=== PATIENT | male | born 1955 | race Hispanic/Latino ===

== ENCOUNTER 2023-07-23 10:27 | Emergency (ER) | payer OTHER, SELFPAY ==
[2023-07-23 10:33] VITALS: BP 180/96
[2023-07-23] MEDS: ADACEL 0.5 ML IM (12:08)
[2023-07-23] MEDS: KEFLEX 500 MG PO (12:09)
--- NOTE | 2023-07-23 13:45 | ED.GENMED ---
History of Present Illness
General
Chief Complaint: Skin Problem
Source: patient
Exam Limitations: none
Time Seen by Provider: 07/23/23 11:29
Nursing documentation reviewed up to this point in time: agreed with
Travel History
Have you had any contact with someone who has COVID-19?: No
Do you have any symptoms of coronavirus? Fever > 100 degrees, chills, cough, shortness of breath, sore throat, loss of taste or smell, muscle aches, or headache?: No
History of Present Illness
History of Present Illness:
68-year-old male with a past medical history of diabetes presents with his son for evaluation of redness in the right hand. Patient had a splinter in the right thenar eminence on Thursday. It was very small and was able to remove it but since then
he has had some redness in the area and he was concerned that there might be a retained piece of splinter or that he might have an infection. Brought to the emergency room for assessment. He denies any fevers or chills. Denies any other
complaints.
Review of Systems
Review of Systems
All Other Systems: ROS reviewed and negative except as documented in HPI and ROS
Skin: Reports other (Redness, pain right hand)
Phy Exam
Physical Exam
Physical Exam:
General: Well appearing and non-toxic
HEENT: protecting airway
Neck: appears supple
CV: No evidence of cyanosis
Resp: No accessory muscle use
Abd: Non-distended
Extremities: Patient has an area of erythema on right palm over the thenar eminence approximately 2 cm in circumference with a small abrasion honey crusted in the center; area is warm to touch, mildly tender but not significantly swollen, no
crepitus or fluctuance
Neuro: Alert
Psych: Normal affect
Skin: Intact
Scores
Heart Failure Risk
Heart Failure Risk Score: Not Applicable
Heart Score for Chest Pain Patients
STEMI patient?: Not applicable
Withdrawal Assessment of Alcohol
Withdrawal Assessment Completed?: Not applicable
Course
Orders/Labs/Results
Orders:
Orders
07/23/23 12:02
Cephalexin Monohydrate [Keflex] 500 mg PO NOW STA
Tetanus/Diphth/Acelpertussis [Adacel] 0.5 ml IM .ONCE ONE
Vital Signs
Initial and Last Documented VS:
Initial Vital Signs
Temp Pulse Resp BP Pulse Ox
36.6 C 75 18 180/96 98
07/23/23 10:33 07/23/23 10:33 07/23/23 10:33 07/23/23 10:33 07/23/23 10:33
Last Documented Vital Signs
Temp Pulse Resp BP Pulse Ox
36.6 C 75 18 180/96 98
07/23/23 10:33 07/23/23 10:33 07/23/23 10:33 07/23/23 10:33 07/23/23 10:33
MDM/Problems Addressed
Differential Diagnosis Includes:
Cellulitis, retained foreign body
MDM/Problems Addressed:
68-year-old male with history of diabetes presents for evaluation of redness in the palm where he had a splinter earlier this week. He believes he removed the splinter but has had some pain and redness in the area since. Hypertensive otherwise
normal vitals. Exam as above. [id number] ultrasound showed no retained foreign body. Suspect likely cellulitis. Will cover with antibiotics. Will have him follow-up in insulin clinic for reassessment and repeat blood pressure check. Spoke
about return precautions all questions answered.
Chronic conditions affecting care:
Diabetes, high risk for infections
Acute Exacerbation and/or Progression of Chronic Illness:
Acutely hypertensive�no signs or symptoms of hypertensive emergency no indication for emergent antihypertensive therapy at present
Acute Exacerbation and/or Progression of Chronic Illness: HTN
*Pulse Oximetry
Patient hypoxic: no
*Critical Care Note
Total Time (30-74mins, 75-104mins- exclusive of procedures): Not Applicable
Data Reviewed
Source: patient and family (Son)
ED Attending Note
-
Portions of this chart may have been created with voice recognition software.� Occasional wrong word or��sound alike� substitutions may have occurred due to the inherent limitations of voice recognition software.
Discharge Plan
Departure
Patient Disposition: Home (Routine Discharge)
Date of Disposition: 07/23/23
Time of Disposition: 12:02
Patient with high blood pressure during this ER visit?: Yes
Discharge Problem:
Cellulitis, Hypertension
Instructions: Cellulitis (Skin Infection), Adult (DC), BLOOD PRESSURE
Prescriptions:
New
cephalexin 500 mg capsule
500 mg PO QID 7 Days Qty: 28 0RF
Referrals:
[facility]Outside[facility] - Call in 1-3 days for appt
NONE,* [Family Provider] -
Activity Restrictions/Additional Instructions:
Thank you for visiting the Emergency Department at [facility].
1. Please schedule a follow up appointment as directed. Call first thing tomorrow morning to make an appointment.
2. If indicated, please take your medications as instructed and indicated on discharge paperwork.
3. If any of your symptoms do not improve, or persist, or become more severe within 6-12 hours, please return to the emergency department for further care.
4. Please return to the emergency department if you develop a headache, neck pain/stiffness, fever greater than 100.4F, chest pain, shortness of breath, persistent nausea, vomiting, slurred speech, difficulty walking, numbness/tingling, weakness,
signs of infection or any other symptoms that are worrisome to you.
Please call [phone] if you have any questions.
Interventions
Interventions:
*General Assessment Last Done: 07/23/23 12:16
*ED COVID-19 Vaccine History Last Done: 07/23/23 10:39
*Nursing Disposition Last Done: 07/23/23 12:16
ED-Skin Assessment Last Done: 07/23/23 12:15
Discharge Date and Time
Discharge Date/Time: 07/23/23 12:16
== END 2023-07-23 12:16 | disposition home or self-care (01) ==
LOC: EMR 10:27
PROVIDERS: EMERGENCY PHYSICIAN Emergency Medicine
DX: L03.113 Cellulitis of right upper limb (principal); E11.9 Type 2 diabetes mellitus without complications; I10 Essential (primary) hypertension; Z23 Encounter for immunization
CPT/HCPCS: 99283; 90471; 90715

== ENCOUNTER 2024-12-27 20:20 | Inpatient (IN) | payer OTHER, SELFPAY ==
[2024-12-27] VITALS (7 sets, daily range): BP systolic 101–147; BP diastolic 50–100; BMI 21.6
[2024-12-27] MEDS: TYLENOL 1000 MG PO (18:13)
[2024-12-27 18:18] LABS: INR 1.21; PT 15.6 Sec (11.4-14.6)
[2024-12-27 18:23] LABS: Urine Character Cloudy (Clear)
[2024-12-27 18:27] LABS: Hematocrit 38.7 % (39.0-52.0); Hemoglobin 13.8 g/dL (13.0-18.0); Mean Corp Hgb Conc. 35.7 g/dL (33.0-37.0); Mean Corpuscular Volume 85.6 fL (80.0-94.0); Nucleated Red Blood Cells % 0 % (-); Platelet Count 198 10^3/uL (130-400); Red Cell Dist. Width 12.5 % (11.5-14.5)
[2024-12-27 18:36] LABS: AST (SGOT) 28 U/L (17-59); Albumin 4.0 g/dl (3.5-5.0); Alkaline Phosphatase 67 U/L (38-126); Blood Urea Nitrogen 22 mg/dl (9-20); Calcium 9.1 mg/dl (8.4-10.2); Carbon Dioxide 21 mmol/L (22-30); Chloride 100 mmol/L (98-107); Estimated Creatinine Clearance 58 ml/min; Glucose 186 mg/dl (70-99); Potassium 4.3 mmol/L (3.5-5.1); Sodium 132 mmol/L (135-145); Total Protein 7.2 g/dl (6.3-8.2); eGFR > 60.00
[2024-12-27 18:41] LABS: Urine Squamous Cell 0-2 /LPF (Few)
[2024-12-27 18:42] LABS: Urine White Cell >100 /HPF (0-5)
--- NOTE | 2024-12-27 18:43 | ED.GENMED ---
History of Present Illness
General
Chief Complaint: Chest Pain
Source: patient
Exam Limitations: none
Time Seen by Provider: 12/27/24 18:42
Nursing documentation reviewed up to this point in time: agreed with
History of Present Illness
History of Present Illness:
69-year-old male with history of NIDDM, hypothyroid, afib, presents pt Trinidadian only speaking, niece at bedside interpreting. She states pt was complaining of chest pain 12 midnight, then this a.m c/o back pain, developed fever. Has had diarrhea
past 5 days. Niece states at some point he was told he had a fib and wore a monitor overnight, was on diabetic pills, but pt stopped all of his medication about a year ago because he thought it made him cough and his doctor told him to stop taking
it.
Past History
Past History
ED Past Medical History: HTN, NIDDM and Hypothyroidism
ED Past Surgical History: None
Social History
Tobacco: Non-smoker
Alcohol: None
Personal:
Living: with family
Review of Systems
Review of Systems
Allergies reviewed?: Yes
All Other Systems: ROS reviewed and negative except as documented in HPI and ROS
Constitutional: Reports fever and fatigue
EENT: Denies sore throat
Respiratory: Reports cough; Denies trouble breathing
Cardiac: Reports chest pain
ABD/GI: Reports nausea, vomiting and diarrhea; Denies abdominal pain
: Denies dysuria
Musculoskeletal: Reports back pain; Denies edema
Skin: Reports no symptoms
Neurological: Reports no symptoms
Phy Exam
Physical Exam
Physical Exam:
GENERAL: No acute distress. A&Ox3.
CONSTITUTIONAL: 103.1
EYES: clear, conjunctivae normal
ENMT: moist mucus membranes, Pharynx nl
RESPIRATORY: Regular respirations, nonlabored, lungs clear.
CARDIOVASCULAR: Regular rate and rhythm, no murmurs, no rubs.
GI: Soft, nontender, normal BS
MUSCULOSKELETAL: Moves with ease. Well perfused.
SKIN: Warm, dry, pink
PSYCH: Normal mood and affect. Well kept, interactive and appropriate
NEUROLOGIC: Awake, alert and oriented. No focal neurological deficits
Scores
Heart Score for Chest Pain Patients
STEMI patient?: Not applicable
Sepsis
Sepsis Screening
Sepsis Assessment: Sepsis
Sepsis Screen
Sepsis Screen: Sepsis
Date: 12/27/24
Time: 20:22
Course
Orders/Labs/Results
Orders:
Orders
12/27/24 17:28
Electrocardiogram (*1) Urgent
Reason for Study: Chest Pain
EKG- Treatment ONCE
12/27/24 17:51
Cardiac Monitoring- Treatment ONCE
12/27/24 17:54
CXR [CR Chest Portable - 1 View] Stat
Comment:
Reason For Exam: sob, tachy
Reason Study Needs to be Portable: Patient Unstable
12/27/24 17:57
COVID-19 Antigen Urgent
Source: Nasal Swab
Complete Blood Count/With Diff Urgent
Comprehensive Metabolic Panel Urgent
Lactic Acid Q4H
Comment: ON ICE, CANCEL 2ND ORDER IF FIRST LACTIC ACID LEVEL <2
Prothrombin Time Urgent
TSH Reflex To Free T4 Urgent
Comment: ADD ON
Troponin I Urgent
Influenza A+B Rapid Molecular Urgent
ISIDRA Source: Nasal Swab
Specimen Description:
12/27/24 17:58
Blood Culture Urgent
ISIDRA Source: Blood/Venous
Specimen Description:
12/27/24 18:13
Acetaminophen [Tylenol] 1,000 mg PO NOW STA
12/27/24 18:14
Urinalysis Reflex To Culture Urgent
Date Specimen was Collected: 12/27/24
Time Specimen was Collected: 18:10
Urine Microscopic Reflex Cult Urgent
Blood Culture Urgent
ISIDRA Source: Blood/Venous
Specimen Description:
Urine Culture Urgent
ISIDRA Source: U
Specimen Description:
Date Specimen was Collected: 12/27/24
Time Specimen was Collected: 18:10
12/27/24 18:45
0.9% Sodium Chloride 1000 ml [Nss] 1,000 ml IV BOLUS
12/27/24 18:47
Cefepime HCl [Maxipime] 2,000 mg IV NOW STA
12/27/24 19:14
Add On- LAB Urgent
Tests Added?: TSH reflex T4
12/27/24 19:24
STOOL [C difficile Antigen & Toxins] Urgent
ISIDRA Source: Feces/Stool
Specimen Description:
Stool Culture Urgent
ISIDRA Source: Feces/Stool
Specimen Description:
12/27/24 19:26
0.9% Sodium Chloride 1000 ml [Nss] 1,000 ml IV BOLUS
12/27/24 19:[address] Non Medication Order As Directed
Physician Order: please complete med rec. thanks
Above order entered?: Yes
12/27/24 19:48
Bladder Scan As Directed
Follow Bladder Retention/Intermittent Cath Algorithm?: Yes
PRN if no void in __ hours: 6
Frequency: Per Retention Algorithm
If Bladder Scan Result >: 400
then:: Straight cath
Straight Cath As Directed
Frequency: Per Retention Algorithm
Additional Instructions: straight cath as needed per acute urinary retention algorithm for 24 hrs
Additional Instructions: for bladder scan greater than 400 mL
12/27/24 19:55
CT Abd/pelvis Wo Iv Cont Routine
Comment:
Reason For Exam: abdominal pain
12/27/24 20:07
Admit/Transfer Patient As Directed
Co-Sign Provider:
Level of Care: Inpatient admission
Assign to:: Telemetry
Physician / Group: maulik
Diagnosis: urosepsis
Reason for Telemetry: Arrhythmia
Date to Stop Telemetry: 12/30/24
Time to Stop Telemetry: 11:00
Reason for Hospitalization: urosepsis
Expected length of stay greater than two midnights?: Yes
ELOS- Estimated Length of Stay in days: 3
I certify the patient meets the requirements for IP care: Yes
PRN Pain Medication Management As Directed
May give lesser potent ordered pain med per pt: Yes
preference::
Protocol:: Medication orders for pain may be administered in a
manner that supports deferring to patient preference
when the pt is:
- Requesting an ordered lesser potent pain medication.
Least to most potent pain medications are defined
as: acetaminophen < NSAID < tramadol < opioids
(morphine, oxycodone, hydromorphone).
- Requesting a lesser dose of the same medication IF
ORDERED.
- Requesting a less intrusive route of administration
if both routes are prescribed by the provider (PO <
IV).
12/27/24 20:09
Code Status As Directed
Resuscitation Status: Full Code
12/27/24 22:00
Lactic Acid Q4H
Comment: ON ICE, CANCEL 2ND ORDER IF FIRST LACTIC ACID LEVEL <2
12/30/24 11:00
DC Protocol for Telemetry ONCE
Abnormal Lab Results
12/27/24 12/27/24
17:57 18:14
WBC 24.1 H 10^3/uL
(4.8-10.8)
RBC 4.52 L 10^6/uL
(4.70-6.10)
Hct 38.7 L %
(39.0-52.0)
Abs Immat Gran (auto) 0.3 H 10^3/uL
(0-0.05)
Absolute Neuts (auto) 20.3 H 10^3/uL
(1.4-6.5)
Absolute Monos (auto) 2.0 H 10^3/uL
(0.1-0.6)
Immature Gran % 1.1 H %
(0-0.5)
Neutrophils % 84.3 H %
(42.2-75.2)
Lymphocytes % 6.0 L %
(20.5-51.1)
PT 15.6 H Sec
(11.4-14.6)
Sodium 132 L mmol/L
(135-145)
Carbon Dioxide 21 L mmol/L
(22-30)
BUN 22 H mg/dl
(9-20)
Glucose 186 H mg/dl
(70-99)
Lactic Acid 4.3 H* mmol/L
(0.7-2.0)
Total Bilirubin 2.3 H mg/dl
(0.2-1.3)
Ur Occult Blood Reflex 4+ A
(Negative)
Leukocyte Esterase Rfl 3+ A
(Negative)
Urine WBC (Reflex) >100 A /HPF
(0-5)
Urine Bacteria (Reflex) Moderate A
(Negative)
Urine Albumin (Reflex) 4+ A
(Neg - Trace)
12/27/24 17:57
12/27/24 17:57
Vital Signs
Initial and Last Documented VS:
Initial Vital Signs
Temp Pulse Resp BP Pulse Ox
103.1 F H 141 20 126/68 97
12/27/24 17:36 12/27/24 17:36 12/27/24 17:36 12/27/24 17:36 12/27/24 17:36
Last Documented Vital Signs
Temp Pulse Resp BP Pulse Ox
100.1 F 108 25 101/50 98
12/27/24 19:23 12/27/24 19:45 12/27/24 19:45 12/27/24 19:00 12/27/24 19:45
MDM/Problems Addressed
Differential Diagnosis Includes:
UTI, pneumonia, sepsis, ME, CHF, pyelonephritis,
MDM/Problems Addressed:
69-year-old male with history of NIDDM, hypothyroid, afib, presents pt Trin[place] only speaking, niece at bedside interpreting. She states pt was complaining of chest pain 12 midnight, then this a.m c/o back pain, developed fever. Has had diarrhea
past 5 days. Niece states at some point he was told he had a fib and wore a monitor overnight, was on diabetic pills, but pt stopped all of his medication about a year ago because he thought it made him cough and his doctor told him to stop taking
it.
Fever 103.1
EKG Afib with RVR HR
6:30 PM:
CBC: WBC 24.1 with a shift
CMP: Consistent with mild dehydration
Troponin: 0.016
COVID-negative
Chest x-ray no acute process
7:30 p.m.
69-year-old male mild to moderately ill-appearing, alert, workup consistent with sepsis due to urinary tract infection. Septic protocol followed
Plan: Admit: Urosepsis
Hospitalist notified of admission
*Pulse Oximetry
SaO2: 97
Oxygen Mode of Delivery: Room air
Patient hypoxic: no
*EKG
EKG Intrepretation Date: 12/27/24
Interpretation: abnormal
Heart Rate: 120
Rate: tachycardiac
Rhythm: a-fib
[place]: normal axis
QRS Pattern: normal QRS
Ischemia: no ischemia
*Critical Care Note
Total Time (30-74mins, 75-104mins- exclusive of procedures): Not Applicable
ED Attending Note
-
Portions of this chart may have been created with voice recognition software.� Occasional wrong word or��sound alike� substitutions may have occurred due to the inherent limitations of voice recognition software.
Discharge Plan
Departure
Patient Disposition: Admit
Date of Disposition: 12/27/24
Time of Disposition: 18:48
Presentation/result/management discussed w/ accepting MD/DO: Hospitalist
Condition: Fair
Discharge Problem:
Acute UTI, Sepsis
Interventions
Interventions:
*Risk Screen - Suicide Last Done: 12/27/24 18:20
*General Assessment Last Done: 12/27/24 17:36
*Neglect/Abuse Screening Last Done: 12/27/24 18:20
*ED COVID-19 Vaccine History Last Done: 12/27/24 18:20
ED- Cardiac Assessment Last Done: 12/27/24 19:59
[2024-12-27 18:46] LABS: ALT (SGPT) < 10 U/L (0-50)
[2024-12-27 18:48] LABS: Troponin I 0.016 ng/ml
[2024-12-27] MEDS: NSS 1000 IV ×3 (18:48→22:10)
[2024-12-27] MEDS: MAXIPIME 2000 MG IV (18:49)
[2024-12-27 18:51] LABS: COVID-19 Antigen Negative (Negative)
--- NOTE | 2024-12-27 19:33 | HPS.HSE ---
Family Physician
-
Family Physician: NOT KNOW UNKNOWN - PT DOES
Chief Complaint
-
generalized achiness
History of Present Illness
69-year-old male with history of NIDDM, hypothyroid, afib, presents with left upper back and chest pain for past few days. patient also complained of abdominal pain,diarrhea for past few days. he was nauseous today and vomited once today.he had
temp of 100.3 at home. he complained of chills. patient stated urinary frequency, denied dysuria or hematuria. he is having neck pain down to his lower back. denied ZENG, dizzy or syncope. denied sob. he has chronic cough. pt Danish only speaking,
niece at bedside interpreting.
UA positive for UTI. Patient received Tylenol, cefepime, normal saline x 2 bag in the ER. Blood cultures, stool for C. difficile and stool cultures ordered in ER admitting for further management
patient not taking any meds at home. he stopped taking meds months ago. patient does not remember the name of meds. we retrieved med from external medical summary.
Medical History
Past Medical History
Past Medical History: Reports Other
Additional Past Medical History:
Type 2 diabetes
A-fib
Hypothyroidism
Hypertension
Past Surgical History: Reports Other
Additional Past Surgical History:
Left arm surgery
Social History
Tobacco: Non-smoker
Alcohol: Occasional
Drug: None
Personal:
Living: With Family
Family History
Family History: Not pertinent
Allergies / Home Medications
Allergies reflects when Allergies were last updated in [facility].
Home Medications with original date entered in [facility]
Allergy/Medication List:
Allergies
Allergy/AdvReac Type Severity Reaction Status Date / Time
No Known Allergies Allergy Verified 07/23/23 10:41
Home Medications
No Meds [No Current Medications] 12/27/24
Review of Systems
-
Constitutional: Reports Fever, Fatigue and Chills
EENT: Reports No Symptoms
Respiratory: Reports Cough
Cardiac: Reports Chest Pain
Abdomen/GI: Reports Abdominal Pain, Nausea, Vomiting and Diarrhea
: Reports No Symptoms and Frequency
Musculoskeletal: Reports Other (back pain)
Skin: Reports No Symptoms
Neurological: Reports Weakness
Endocrine: Reports No Symptoms
Hematologic/Lymphatic: Reports No Symptoms
Psych: Reports No Symptoms
Physical Exam
Vital Signs
Vital Signs
Temp Pulse Resp BP Pulse Ox
100.1 F 113 27 101/50 96
12/27/24 19:23 12/27/24 19:15 12/27/24 19:15 12/27/24 19:00 12/27/24 19:15
Physical Exam
General: Well Developed, Well Nourished and No Apparent Distress
HEENT: NormoCephalic, Moist mucous membranes and Atraumatic
Respiratory: Clear
Cardiac: S1/S2 and Regular Rhythm; No Murmur or Rub
GI: Soft, Non Tender, Non Distended and Normal Bowel Sounds; No Organomegaly
Rectal: Deferred by Provider
Musculoskeletal: No Clubbing, No Cyanosis and No Edema
Skin: No Rash
Neuro: AO x 3 and Nonfocal/grossly intact
Psych: Calm
Laboratory Results
-
12/27/24 17:57
12/27/24 17:57
Laboratory Results
PT 15.6 Sec (11.4-14.6) H 12/27/24 17:57
INR 1.21 12/27/24 17:57
Lactic Acid 4.3 mmol/L (0.7-2.0) H* 12/27/24 17:57
Total Bilirubin 2.3 mg/dl (0.2-1.3) H 12/27/24 17:57
AST 28 U/L (17-59) 12/27/24 17:57
ALT < 10 U/L (0-50) 12/27/24 17:57
Alkaline Phosphatase 67 U/L (38-126) 12/27/24 17:57
Troponin I 0.016 ng/ml 12/27/24 17:57
Data Reviewed
-
Diagnostic Radiology: Report Reviewed by me
Lab Data: Labs Reviewed by me
Impression/Plan
-
# Urosepsis
- WBCs 24.1, lactate 4.3, tachycardia
-Bladder scan
-CT of abdomen pelvis
-Cefepime continue
- Blood culture sent from ER
- Tylenol p.o. for fever and pain
# Diarrhea/nausea/vomiting likely viral
- Obtain stool for C. difficile and culture
# Hyponatremia likely hypovolemic
- Sodium 132
- Fluids continued
# H A-fib with RVR
-Will add Eliquis 5 mg twice a day
-Metoprolol 50 twice a day
# History of hyperthyroidism
-Hold methimazole and propylthiouracil
-obtain TSH with T4 in am
#essential HTN
-hold Norvasc and Lisinopril at present
#type 2 Dm
-sliding scale
-CHo diet
-hold metformin
#DVT prophylaxis
-eliquis
#CODE status
-full code
--- NOTE | 2024-12-27 19:53 | W.PN.UPDATE ---
Update Note
Progress Note Update
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 I agree with the findings and physical. I concur with assessment and plan listed otherwise.
This is a 69-year-old with past medical history significant for atrial fibrillation, zfz-nsrfxuy-spousdoyw diabetes, hyperthyroid presents to the emergency department for complaints of chest discomfort, back pain/flank pain as well as a fever.
Family reports that diarrhea for 5 days. He is currently not taking any medications for any of his conditions due to concern that intermittent cough. He has not taken medications for over a year.
Family reports that he has been having urinary incontinence and some difficulty with voiding. He also reports some back pain as well as shoulder pain.
In the emergency department he was febrile to over 103. Tachycardic to the 120s. He was satting 98% on room air. ECG shows atrial fibrillation at a rate of 120. Chest x-ray shows no acute infiltrates. Troponin is negative. UA is positive for
leukocyte esterase, WBCs and bacteria. Occult blood. There is significant pyuria.
1 urosepsis -unclear his predisposing factors as patient has no history of CVA BPH and nephrolithiasis. He is .
-Admit to telemetry
-Status post 30 mL/kg crystalloid bolus
-Continue IV fluid
-Blood and urine cultures sent
-CTAP without contrast to rule out stone or obstruction or mass
-Bladder scan to rule out ongoing urinary retention
-Agree with continuing IV cefepime for now 1 g Q6
2. Uncontrolled atrial fibrillation -patient previously on metoprolol and Eliquis currently noncompliant. Likely untreated uncontrolled atrial fibrillation in the setting of sepsis and fever
-Telemetry
-Fever control
-IV fluids as above
-Risk that is metoprolol at 50 twice daily with hold parameters
-Can restart Eliquis if CTAP negative for stone requiring any intervention
3. Hyperthyroidism -old medication shows that he was on PTU and methimazole but not currently on any thyroid supplementation. No thyrotoxicosis/or thyroid myxedema
-Check TSH with free T4
4. Diabetes -
- Sliding scale insulin for now
-Check A1c
DVT prophylaxis -will restart Eliquis
CODE STATUS�full code
[2024-12-27] MEDS: ELIQUIS PO ×2 (22:10→22:34)
[2024-12-27] MEDS: LOPRESSOR PO ×2 (22:12→22:35)
[2024-12-27] MEDS: TYLENOL 650 MG PO (23:50)
--- NOTE | 2024-12-28 02:45 | DOWNTIME ---
There was a [employer] Downtime on 12/28/2024 from 0100 to 12/28/2024 at 0235. Downtime documentation of patient's care, including medication administrations, has been reconciled in the electronic record per guidelines. Refer to the
patient's paper chart under the miscellaneous tab to see printed paper medication records and downtime forms.
[2024-12-28 03:00] VITALS: BP 91/63
[2024-12-28] MEDS: MAXIPIME 1000 MG IV ×4 (03:25→20:19)
[2024-12-28] MEDS: STERILE WATER FOR INJECTION 10 ML IV ×4 (03:25→20:19)
[2024-12-28 06:00] VITALS: BMI 23.0
[2024-12-28 07:00] VITALS: BP 126/74
[2024-12-28 07:59] LABS: Hematocrit 37.9 % (39.0-52.0); Hemoglobin 13.0 g/dL (13.0-18.0); Mean Corp Hgb Conc. 34.3 g/dL (33.0-37.0); Mean Corpuscular Volume 88.6 fL (80.0-94.0); Platelet Count 163 10^3/uL (130-400); Red Cell Dist. Width 12.9 % (11.5-14.5)
[2024-12-28 08:29] LABS: Blood Urea Nitrogen 25 mg/dl (9-20); Calcium 8.2 mg/dl (8.4-10.2); Carbon Dioxide 17 mmol/L (22-30); Chloride 107 mmol/L (98-107); Estimated Creatinine Clearance 56 ml/min; Glucose 169 mg/dl (70-99); Potassium 4.2 mmol/L (3.5-5.1); Sodium 137 mmol/L (135-145); eGFR > 60.00
--- NOTE | 2024-12-28 08:34 | W.PN.HOSP.TC ---
Today's Communication/Plan
-
Continue IV fluid,
Pending final culture, for now continue antibiotic.
Cardiology consult,
Assessment / Plan
Assessment / Plan
Impression:
Assessment/plan:
Severe sepsis with acute organ dysfunction
Patient meets sepsis criteria on admission
Heart rate 131
WBCs 25.9
Respiratory rate 28
Temperature 103.1
Source of infection is urine
IV fluid
IV antibiotic in form of cefepime
Blood culture gram-negative bacilli, pending final
Urine culture pending.
CT abdomen and pelvis:
At least moderately enlarged prostate gland. At least relative diffuse wall thickening of the urinary bladder due to underdistention or bladder outlet obstruction. Other etiology such as cystitis cannot be excluded.
Evaluation of the abdomen and pelvis overall markedly limited without oral or intravenous contrast demonstrating no intestinal obstruction, findings to suggest obstructive uropathy bilaterally or free air.
Small simple left renal cyst.
Uncontrolled atrial fibrillation with AVR:
-patient previously on metoprolol and Eliquis currently noncompliant. Likely untreated uncontrolled atrial fibrillation in the setting of sepsis and fever
-Telemetry
-Fever control
-IV fluids as above
-Risk that is metoprolol at 50 twice daily with hold parameters
-restarted Eliquis.
- Cardiology consulted
History of hyperthyroidism
-old medication shows that he was on PTU and methimazole but not currently on any thyroid supplementation. No thyrotoxicosis/or thyroid myxedema
-TSH <0.02, Free T4 4.52
- Resume methimazole/Propylthiouracil.
History of diabetes mellitus
Continue home medication
Insulin sliding scale
Diabetic diet
Hemoglobin A1c 8.4
DVT prophylaxis -will restart Eliquis
CODE STATUS: Full code
DVT prophylaxis: Eliquis
Diet: cardiac/ DM diet
Family communication: Discussed with son as bedside.
Disposition: Continue IV fluid, continue antibiotic, cardiology cx
Total time spent on today's encounter was 65 minutes which included time spent in counseling the patient/family regarding diagnosis and treatment plan as listed above, goals of care, and symptom management. Case was discussed with nursing staff,
specialists, and care coordinators/case management. All labs and imaging personally reviewed by me. Remainder the time spent in detailed review of previous records, lab data, imaging, and other medical provider documentation.
Anticipated Discharge: > 48 hours
Subjective/Interval History
-
Date of Service: December 28, 2024
Patient feeling slightly better, translation obtained from son at bedside.
Objective Data
-
Labs:
Laboratory Results
12/28/24
07:46
WBC 25.9 H
Hgb 13.0
Hct 37.9 L
Plt Count 163
Sodium 137
Potassium 4.2
Chloride 107
Carbon Dioxide 17 L
BUN 25 H
Creatinine 1.2
Glucose 169 H
Calcium 8.2 L
Vital Signs:
Vital Signs
Temp Pulse Resp BP Pulse Ox
99.2 F 95 20 91/63 96
12/28/24 03:38 12/28/24 03:00 12/28/24 03:00 12/28/24 03:00 12/28/24 03:00
Physical Exam
-
General: Well Developed, Well Nourished, No Apparent Distress and Comfortable
HEENT: Normocephalic, Atraumatic, Moist Mucous Membranes, No Ptosis, PERRLA and Nose Appears Normal
Respiratory: Rales, Rhonchi and Non Labored Respirations
Cardiac: S1/S2 and Irregular Rhythm
Breast: Deferred by me
GI: Soft, Nontender, Nondistended and Normal Bowel Sounds
Genito-urinary: No Costovertebral Tender
Musculoskeletal: No Clubbing, No Cyanosis and No Edema
Skin: Warm
Neuro: Awake, Alert, Oriented, AO x 3 and No Motor Deficits
Psych: Calm
Data Reviewed
-
Diagnostic Radiology: Image personally visualized and interpreted and Report Reviewed by me
CT Scan: Image personally visualized and interpreted and Report Reviewed by me
Ultrasound: Image personally visualized and interpreted and Report Reviewed by me
MRI: Image personally visualized and interpreted and Report Reviewed by me
Medical Tests (Nuc Med, Echo etc): Image personally visualized and interpreted and Report Reviewed by me
Labs: Labs Reviewed by me
Old Records: Reviewed
--- NOTE | 2024-12-28 08:40 | PTCARENOTE ---
Patient with critical lactic at 4.7. BCX prelimary result positive for gram negative bacilli. Provider notified. Per provider, he will be up to the bedside to see the patient.
[2024-12-28] MEDS: LOPRESSOR 50 MG PO ×2 (08:53→20:20)
[2024-12-28] MEDS: ELIQUIS 5 MG PO ×2 (08:55→20:19)
[2024-12-28 09:06] LABS: Glucose - Point of Care 168 mg/dl (70-99)
[2024-12-28 09:26] LABS: Glycohemoglobin (HgbA1c) 8.4 % (4.0-5.6)
[2024-12-28] MEDS: NOVOLOG FLEXPEN-LOW RESISTANCE 1 UNITS SC ×2 (09:50→18:09)
[2024-12-28] MEDS: NSS 1000 IV ×2 (09:52→18:30)
[2024-12-28 11:00] VITALS: BP 122/88
[2024-12-28 12:42] LABS: Glucose - Point of Care 256 mg/dl (70-99)
[2024-12-28] MEDS: NOVOLOG FLEXPEN-LOW RESISTANCE 3 UNITS SC (13:09)
--- NOTE | 2024-12-28 13:54 | PN.CDI ---
CDI
- -
CDI:
Physician Documentation Request
Admit Date: 12/27/24 20:20
Dear Doctor Kimberly,
Patient admitted with severe sepsis.
Lactic acid levels documented below:
Patient received IV NSS.
Laboratory Tests
12/27/24 12/27/24 12/28/24
17:57 23:25 07:46
Lactic Acid 4.3 H* 3.1 H 4.7 H*
Based on the above, please clarify in the progress notes, the appropriate diagnosis, if significant, that supports the above abnormalities and additional evaluation, monitoring and/or treatment rendered:
Lactic acidosis
Insignificant abnormal lab findings
Other
Use of terms such as suspected, likely, concern for, or probable (associated with a specific diagnosis that is being evaluated, monitored, or treated as if it exists) are acceptable and can be coded in the inpatient setting, when documented at the
time of discharge.
Thank you,
Lizabeth KIM,RN,CCDS
CDI Specialist
Available via tiger text
Please use your independent medical judgment in providing your response.
--- NOTE | 2024-12-28 14:27 | CON.CAR ---
Addendum entered and electronically signed by Parth Montaño MD 12/28/24 16:13:
I saw and examined the patient.
The BROWNING PROCESSOR's note was reviewed and I agree with the note.
Comment:
69 y/o male (patient of Dr. Esparza) with persistent AFIB, hyperthyroidism, HTN, DM2 and history of non-compliance with medical therapy who was admitted with urosepsis found to be in atrial fibrillation with RVR for which cardiology is consulted.
Prior to admission he had been noncompliant with most of his home medications including metoprolol and apixaban. Patient denies cardiovascular complaints at time of my interview.
Physical exam: Generally uncomfortable appearing, irregular rate and rhythm, soft systolic murmur, lungs clear to auscultation bilaterally, no lower extremity edema
His fast A-fib is likely due to urosepsis and hyperthyroidism. Metoprolol 50 mg twice daily has been resumed and his rates are reasonable in the 90s�100s at rest. Goal HR <120 bpm. Continue apixaban for anticoagulation. Follow-up echocardiogram
once rate controlled.
Treatment of sepsis per primary team.
Original Note:
Consultation
Consultation Request
Date/Time Consultation Requested: 12/28/24 1305
Date/Time Consultation Performed: 12/28/24 1417
Requesting Provider: Dr. Harris
Performing Provider: Yessy HODGSON for Dr. Montaño
Reason for Consultation: AFIB with RVR
Medical History
-
Chief Complaint: back pain, chest discomfort, fever
History of Present Illness:
69 y/o male (cardiology patient of Dr. Esparza) with persistent AFIB, hyperthyroidism, HTN, DM2 and history of non-compliance with medical therapy and follow-up who is here symptoms of CP, back pain, fever, diarrhea. He is admitted with sepsis related
to UTI. Fever as high as 103.1. He is getting IV antibiotics. We are consulted due to AFIB with RVR. He has not been taking any medications- he thought they were making him feel bad. He is feeling better today. No more CP. Metoprolol and Eliquis
resumed. Son at bedside- reports patient is not good about medications, but son will help. I used translater IPAD to communicate effectively with patient and son.
Past Medical History
Past Medical History: Arrhythmias, HTN, Hyperthyroidism and NIDDM
Social History
Tobacco: Non-Smoker
Family History
Family History: Reviewed & Not Pertinent
Allergies / Home Medications
Allergy/AdvReac Type Severity Reaction Status Date / Time
No Known Allergies Allergy Verified 07/23/23 10:41
�Medication �Instructions �Recorded �Confirmed �Type
amlodipine 5 mg tablet (Norvasc) 5 mg PO DAILY 12/27/24 12/27/24 History
apixaban 5 mg tablet (Eliquis) 5 mg PO BID 12/27/24 12/27/24 History
lisinopril 20 mg tablet 20 mg PO DAILY 12/27/24 12/27/24 History
metformin 500 mg tablet 500 mg PO BID 12/27/24 12/27/24 History
methimazole 10 mg tablet 10 mg PO TID 12/27/24 12/27/24 History
metoprolol tartrate 100 mg tablet 100 mg PO BID 12/27/24 12/27/24 History
propylthiouracil 50 mg tablet 50 mg PO BID 12/27/24 12/27/24 History
Review of Systems
-
History Source: Patient and Other (and chart)
All other systems: Negative unless noted
Constitutional: Fever
Cardiac: Chest Pain
Abdomen/GI: Diarrhea
Musculoskeletal: Other (back pain)
Physical Exam
Vital Signs
Temp Pulse Resp BP Pulse Ox
98.4 F 86 17 122/88 96
12/28/24 11:00 12/28/24 11:00 12/28/24 11:00 12/28/24 11:00 12/28/24 11:00
Lab Results
12/28/24 07:46
12/28/24 07:46
Troponin I 0.016 ng/ml 12/27/24 17:57
Physical Exam
General: Well Developed, Well Nourished and No Apparent Distress
HEENT: Normocephalic and Anicteric
Respiratory: Clear and Non Labored Respirations
Cardiac: Irregular Rhythm
Skin: Warm and Dry
Neuro: AO x 3
Psych: Calm
Impression / Plan
-
Sepsis, related to UTI:
-sepsis is diagnosis that is threat to life
-improving with IV ABX, as well as IVF
-w/u and management per primary team
AFIB:
-persistent. Last seen in office in 2022 and not felt to be good candidate for CV or ablation with compliance issues. Plan for rate control.
-rates fast in setting on non-compliance and acute illness with sepsis and hyperthyroidism. Improved as these things are treated.
-Eliquis and metoprolol resumed by primary team. [id number] score is 3 for age, hypertension, and DM. I discussed the reasoning and importance of these medications with patient using inside solar sales consultant Ipad.
-he has never had an echo in system- will obtain tomorrow as rates improve.
CP:
-resolved
-obtain echo
-trop and EKG unremarkable
-was in setting of AFIB with RVR
Hyperthyroidism:
-meds resumed, management per primary
DM2:
-management per primary
HTN:
-monitor
Recommend case management consult per hospitalists to help assess for and manage any barriers to follow-up or med compliance
Data Reviewed
-
EKG: Tracing Personally Visualized and interpreted (AFIB with RVR 120 BPM)
Radiology: Report Reviewed by me (CXR: Low lung volumes without gross acute cardiopulmonary process.)
Labs: Labs Reviewed by me
[2024-12-28 15:00] VITALS: BP 132/65
--- NOTE | 2024-12-28 16:02 | CM ---
Patient seen bedside w/ son, initial assessment completed. Patient is Indonesian speaking only, son assisted w/ translation. Patient is a 69-year-old male with history of NIDDM, hypothyroid, afib, presents with left upper back and chest pain.
Patient resides w/ spouse and son in a 1st floor apartment, no steps to enter. Patient is independent w/ ambulation, no device required. Independent w/ ADLs, no DME reported. Denies SNF/HC hx reported.
Address, point of contact and insurance verified
PCP: No PCP at this time. Seen at the [facility]
Ph[facility]: [facility]
Patient is MA pending. Per son, the [facility] has been assisting w/ insurance coverage.
Plan: Home, anticipating no needs
[2024-12-28 17:02] LABS: Glucose - Point of Care 156 mg/dl (70-99)
[2024-12-28] MEDS: TAPAZOLE 10 MG PO ×2 (17:02→22:20)
[2024-12-28 19:00] VITALS: BP 136/102
[2024-12-28] MEDS: PROPYLTHIOURACIL 50 MG PO (20:19)
[2024-12-28 22:28] LABS: Glucose - Point of Care 144 mg/dl (70-99)
[2024-12-28 23:00] VITALS: BP 138/79
[2024-12-29] MEDS: STERILE WATER FOR INJECTION 10 ML IV ×4 (01:30→20:20)
[2024-12-29] MEDS: MAXIPIME 1000 MG IV ×4 (01:30→20:20)
[2024-12-29 03:00] VITALS: BP 132/91; BMI 22.7
[2024-12-29] MEDS: NSS 1000 IV ×2 (04:02→14:01)
[2024-12-29 07:00] VITALS: BP 129/79
[2024-12-29 07:40] LABS: Glucose - Point of Care 123 mg/dl (70-99)
[2024-12-29 08:17] LABS: Hematocrit 35.2 % (39.0-52.0); Hemoglobin 12.2 g/dL (13.0-18.0); Mean Corp Hgb Conc. 34.7 g/dL (33.0-37.0); Mean Corpuscular Volume 86.5 fL (80.0-94.0); Platelet Count 130 10^3/uL (130-400); Red Cell Dist. Width 12.6 % (11.5-14.5)
[2024-12-29] MEDS: NOVOLOG FLEXPEN-LOW RESISTANCE SC ×3 (08:28→16:43)
[2024-12-29] MEDS: PROPYLTHIOURACIL 50 MG PO ×2 (08:35→20:12)
[2024-12-29] MEDS: ELIQUIS 5 MG PO ×2 (08:35→20:12)
[2024-12-29] MEDS: LOPRESSOR 50 MG PO ×2 (08:35→20:12)
[2024-12-29] MEDS: TAPAZOLE 10 MG PO ×3 (08:35→20:21)
[2024-12-29 08:52] LABS: Blood Urea Nitrogen 25 mg/dl (9-20); Calcium 8.4 mg/dl (8.4-10.2); Carbon Dioxide 17 mmol/L (22-30); Chloride 109 mmol/L (98-107); Estimated Creatinine Clearance 74 ml/min; Glucose 134 mg/dl (70-99); Potassium 3.8 mmol/L (3.5-5.1); Sodium 133 mmol/L (135-145); eGFR > 60.00
--- NOTE | 2024-12-29 09:22 | W.PN.CD ---
Today's Communication / Plan
-
continue metoprolol and eliquis
echo today: if unremarkable, we will be available as needed
Impression / Plan
-
Sepsis, related to UTI:
-improving with IV ABX, as well as IVF
-w/u and management per primary team
AFIB:
-persistent. Last seen in office in 2022 and not felt to be good candidate for CV or ablation with compliance issues. Plan for rate control.
-rates fast in setting on non-compliance and acute illness with sepsis and hyperthyroidism. Improved as these things are treated.
-Eliquis and metoprolol resumed: continue. [id number] score is 3 for age, hypertension, and DM. Discussed the reasoning and importance of these medications with patient using scientific recruiter Ipad.
-echo
Chest pain:
-resolved
-obtain echo
-trop and EKG unremarkable
-was in setting of AFIB with RVR
Hyperthyroidism:
-meds resumed, management per primary
DM2:
-management per primary
HTN:
-monitor
Physical Exam
Vital Signs/Labs
Vital Signs
Temp Pulse Resp BP Pulse Ox
98.2 F 106 20 129/79 97
12/29/24 07:00 12/29/24 08:35 12/29/24 07:00 12/29/24 08:35 12/29/24 07:00
12/28/24 12/29/24 12/30/24
06:59 06:59 06:59
Actual Weight 68.5 kg 67.699 kg
12/29/24 07:52
12/29/24 07:52
PT 15.6 Sec (11.4-14.6) H 12/27/24 17:57
INR 1.21 12/27/24 17:57
Free T4 4.52 ng/dl (0.78-2.19) H 12/27/24 17:57
LAB Results
12/27/24
17:57
Troponin I 0.016
Physical Exam
Constitutional: No acute distress and Comfortable
EENT: Moist mucous membranes
Cardiovascular: Pedal edema is absent, JVD pressure is normal, Systolic murmur absent and Rhythm/rate is irregular
Respiratory: Respiratory effort normal and Lungs clear to auscul.
Neuro/Psych: Alert
Data Reviewed
-
Date of Service: December 29, 2024
EKG: Other (Tele: A fib 90-100, avg)
Labs: Labs Reviewed by me
[2024-12-29 11:00] VITALS: BP 131/72
--- NOTE | 2024-12-29 11:28 | W.PN.HOSP.TC ---
Today's Communication/Plan
-
Continue antibiotics, pending final sensitivity.
Continue environmental monitoring specialist, metoprolol and Eliquis.
Assessment / Plan
Assessment / Plan
Impression:
This is a 69-year-old with past medical history significant for atrial fibrillation, uib-rhrxudm-yfuobjhrv diabetes, hyperthyroid presents to the emergency department for complaints of chest discomfort, back pain/flank pain as well as a fever.
Family reports that diarrhea for 5 days. He is currently not taking any medications for any of his conditions due to concern that intermittent cough. He has not taken medications for over a year.
Patient treated for sepsis with cefepime, developed A-fib with RVR and seen by cardiology who ordered echocardiogram.
Continued on metoprolol and Eliquis.
Positive urine and blood culture positive for Gram negative bacilli.
Leukocytosis and lactic acidosis improved
Assessment/plan:
Severe sepsis with acute organ dysfunction
Patient meets sepsis criteria on admission
Heart rate 131
WBCs 25.9
Respiratory rate 28
Temperature 103.1
Source of infection is urine
IV fluid
IV antibiotic in form of cefepime
both urine and blood cultures positive for gram-negative bacilli, pending final sensitivity.
CT abdomen and pelvis:
At least moderately enlarged prostate gland. At least relative diffuse wall thickening of the urinary bladder due to underdistention or bladder outlet obstruction. Other etiology such as cystitis cannot be excluded.
Evaluation of the abdomen and pelvis overall markedly limited without oral or intravenous contrast demonstrating no intestinal obstruction, findings to suggest obstructive uropathy bilaterally or free air.
Small simple left renal cyst.
Acute organ dysfunction in the form of lactic acidosis
Lactic acidosis.
Secondary to sepsis.
Status post IV fluid.
Improved and resolved
Uncontrolled atrial fibrillation with AVR:
-patient previously on metoprolol and Eliquis currently noncompliant. Likely untreated uncontrolled atrial fibrillation in the setting of sepsis and fever
-Telemetry
-Fever control
-IV fluids as above
-Risk that is metoprolol at 50 twice daily with hold parameters
-restarted Eliquis.
- Cardiology consulted
Echo pending
History of hyperthyroidism
-old medication shows that he was on PTU and methimazole but not currently on any thyroid supplementation. No thyrotoxicosis/or thyroid myxedema
-TSH <0.02, Free T4 4.52
- Resumed methimazole/Propylthiouracil.
History of diabetes mellitus
Continue home medication
Insulin sliding scale
Diabetic diet
Hemoglobin A1c 8.4
CODE STATUS: Full code
DVT prophylaxis: Eliquis
Diet: cardiac/ DM diet
Family communication: Discussed with son as bedside.
Disposition: Continue IV fluid, continue antibiotic, cardiology cx
Total time spent on today's encounter was 65 minutes which included time spent in counseling the patient/family regarding diagnosis and treatment plan as listed above, goals of care, and symptom management. Case was discussed with nursing staff,
specialists, and care coordinators/case management. All labs and imaging personally reviewed by me. Remainder the time spent in detailed review of previous records, lab data, imaging, and other medical provider documentation.
Anticipated Discharge: > 48 hours
Subjective/Interval History
-
Date of Service: December 29, 2024
Overall improved, lactic acidosis improved.
No chest pain, both urine and blood cultures positive for gram-negative bacilli
Objective Data
-
Labs:
Laboratory Results
12/29/24
07:52
WBC 16.7 H
Hgb 12.2 L
Hct 35.2 L
Plt Count 130 D
Sodium 133 L
Potassium 3.8
Chloride 109 H
Carbon Dioxide 17 L
BUN 25 H
Creatinine 0.9
Glucose 134 H
Calcium 8.4
Vital Signs:
Vital Signs
Temp Pulse Resp BP Pulse Ox
98.2 F 106 20 129/79 97
12/29/24 07:00 12/29/24 08:35 12/29/24 07:00 12/29/24 08:35 12/29/24 07:00
I&O
12/28/24 12/29/24 12/30/24
06:59 06:59 06:59
Intake Total 1569 / 1569
Balance 1569 / 1569
Physical Exam
-
General: Well Developed, Well Nourished, No Apparent Distress and Comfortable
HEENT: Normocephalic, Atraumatic, Moist Mucous Membranes, No Ptosis, PERRLA and Nose Appears Normal
Respiratory: Rales, Rhonchi and Non Labored Respirations
Cardiac: S1/S2 and Irregular Rhythm
Breast: Deferred by me
GI: Soft, Nontender, Nondistended and Normal Bowel Sounds
Genito-urinary: No Costovertebral Tender
Musculoskeletal: No Clubbing, No Cyanosis and No Edema
Skin: Warm
Neuro: Awake, Alert, Oriented, AO x 3 and No Motor Deficits
Psych: Calm
[2024-12-29 12:15] LABS: Glucose - Point of Care 136 mg/dl (70-99)
[2024-12-29 15:00] VITALS: BP 143/85
[2024-12-29 16:40] LABS: Glucose - Point of Care 144 mg/dl (70-99)
[2024-12-29 21:29] LABS: Glucose - Point of Care 196 mg/dl (70-99)
[2024-12-29 21:29] LABS: Hepatitis C Antibody Negative (Negative)
[2024-12-29 23:00] VITALS: BP 144/83
[2024-12-30] MEDS: NSS 1000 IV (00:14)
[2024-12-30] MEDS: MAXIPIME 1000 MG IV ×2 (02:19→09:13)
[2024-12-30] MEDS: STERILE WATER FOR INJECTION 10 ML IV ×2 (02:19→09:12)
[2024-12-30 03:00] VITALS: BP 134/92
[2024-12-30 03:53] VITALS: BMI 22.0
[2024-12-30 06:28] LABS: Hematocrit 34.5 % (39.0-52.0); Hemoglobin 12.4 g/dL (13.0-18.0); Mean Corp Hgb Conc. 35.9 g/dL (33.0-37.0); Mean Corpuscular Volume 85.0 fL (80.0-94.0); Platelet Count 138 10^3/uL (130-400); Red Cell Dist. Width 12.3 % (11.5-14.5)
[2024-12-30 06:46] LABS: Blood Urea Nitrogen 23 mg/dl (9-20); Calcium 8.6 mg/dl (8.4-10.2); Carbon Dioxide 17 mmol/L (22-30); Chloride 112 mmol/L (98-107); Estimated Creatinine Clearance 81 ml/min; Glucose 132 mg/dl (70-99); Potassium 3.7 mmol/L (3.5-5.1); Sodium 136 mmol/L (135-145); eGFR > 60.00
[2024-12-30 07:00] VITALS: BP 140/93
[2024-12-30 07:06] LABS: Glucose - Point of Care 147 mg/dl (70-99)
[2024-12-30] MEDS: NOVOLOG FLEXPEN-LOW RESISTANCE SC ×3 (08:43→16:51)
[2024-12-30] MEDS: PROPYLTHIOURACIL 50 MG PO ×2 (09:12→20:18)
[2024-12-30] MEDS: LOPRESSOR 50 MG PO ×2 (09:12→20:18)
[2024-12-30] MEDS: ELIQUIS 5 MG PO ×2 (09:12→20:18)
[2024-12-30] MEDS: TAPAZOLE 10 MG PO ×3 (09:12→22:20)
[2024-12-30 11:13] VITALS: BP 156/86
--- NOTE | 2024-12-30 11:41 | W.PN.HOSP.TC ---
Today's Communication/Plan
-
Possible discharge home on Cipro
Assessment / Plan
Assessment / Plan
Impression:
This is a 69-year-old with past medical history significant for atrial fibrillation, xso-pvbaipm-ktzvpbamk diabetes, hyperthyroid presents to the emergency department for complaints of chest discomfort, back pain/flank pain as well as a fever.
Family reports that diarrhea for 5 days. He is currently not taking any medications for any of his conditions due to concern that intermittent cough. He has not taken medications for over a year.
Patient treated for sepsis with cefepime, developed A-fib with RVR and seen by cardiology who ordered echocardiogram which showed:
1. Normal left ventricular size, wall thickness and systolic function. Ejection fraction is 55%.
2. Moderate mitral regurgitation.
3. Right ventricular size and systolic function are within normal limits.
4. Mild/moderate tricuspid regurgitation.
5. No prior study available for comparison.
Continued on metoprolol and Eliquis.
Positive urine and blood culture positive for Gram negative bacilli (Morganella morganii)
Leukocytosis and lactic acidosis improved
Possible discharge home on Cipro.
Assessment/plan:
Severe sepsis with acute organ dysfunction
Patient meets sepsis criteria on admission
Heart rate 131
WBCs 25.9
Respiratory rate 28
Temperature 103.1
Source of infection is urine
IV fluid
IV antibiotic in form of cefepime
both urine and blood cultures positive for gram-negative bacilli, pending final sensitivity.
CT abdomen and pelvis:
At least moderately enlarged prostate gland. At least relative diffuse wall thickening of the urinary bladder due to underdistention or bladder outlet obstruction. Other etiology such as cystitis cannot be excluded.
Evaluation of the abdomen and pelvis overall markedly limited without oral or intravenous contrast demonstrating no intestinal obstruction, findings to suggest obstructive uropathy bilaterally or free air.
Small simple left renal cyst.
Acute organ dysfunction in the form of lactic acidosis
12/30
Positive urine and blood culture positive for Gram negative bacilli (Morganella morganii)
Possible discharge home on Cipro
Lactic acidosis.
Secondary to sepsis.
Status post IV fluid.
Improved and resolved
Uncontrolled atrial fibrillation with AVR:
-patient previously on metoprolol and Eliquis currently noncompliant. Likely untreated uncontrolled atrial fibrillation in the setting of sepsis and fever
-Telemetry
-Fever control
-IV fluids as above
-Risk that is metoprolol at 50 twice daily with hold parameters
-restarted Eliquis.
- Cardiology consulted
Echo :
1. Normal left ventricular size, wall thickness and systolic function. Ejection fraction is 55%.
2. Moderate mitral regurgitation.
3. Right ventricular size and systolic function are within normal limits.
4. Mild/moderate tricuspid regurgitation.
5. No prior study available for comparison.
History of hyperthyroidism
-old medication shows that he was on PTU and methimazole but not currently on any thyroid supplementation. No thyrotoxicosis/or thyroid myxedema
-TSH <0.02, Free T4 4.52
- Resumed methimazole/Propylthiouracil.
History of diabetes mellitus
Continue home medication
Insulin sliding scale
Diabetic diet
Hemoglobin A1c 8.4
CODE STATUS: Full code
DVT prophylaxis: Eliquis
Diet: cardiac/ DM diet
Family communication: Discussed with son as bedside.
Disposition: Continue IV fluid, continue antibiotic, cardiology cx
Total time spent on today's encounter was 65 minutes which included time spent in counseling the patient/family regarding diagnosis and treatment plan as listed above, goals of care, and symptom management. Case was discussed with nursing staff,
specialists, and care coordinators/case management. All labs and imaging personally reviewed by me. Remainder the time spent in detailed review of previous records, lab data, imaging, and other medical provider documentation.
Anticipated Discharge: Within 24 hours
Subjective/Interval History
-
Date of Service: December 30, 2024
Patient seen and examined at bedside, denies any chest pain or shortness of breath, no abdominal pain, no nausea, no vomiting, no diarrhea or constipation.
Objective Data
-
Labs:
Laboratory Results
12/30/24
06:05
WBC 12.0 H
Hgb 12.4 L
Hct 34.5 L
Plt Count 138
Sodium 136
Potassium 3.7
Chloride 112 H
Carbon Dioxide 17 L
BUN 23 H
Creatinine 0.8
Glucose 132 H
Calcium 8.6
Vital Signs:
Vital Signs
Temp Pulse Resp BP Pulse Ox
97.8 F 77 16 156/86 95
12/30/24 11:13 12/30/24 11:13 12/30/24 11:13 12/30/24 11:13 12/30/24 11:13
I&O
12/29/24 12/30/24 12/31/24
06:59 06:59 06:59
Intake Total 1569 / 1569 240 / 240
Balance 1569 / 1569 240 / 240
Physical Exam
-
General: Well Developed, Well Nourished, No Apparent Distress and Comfortable
HEENT: Normocephalic, Atraumatic, Moist Mucous Membranes, No Ptosis, PERRLA and Nose Appears Normal
Respiratory: Rales, Rhonchi and Non Labored Respirations
Cardiac: S1/S2 and Irregular Rhythm
Breast: Deferred by me
GI: Soft, Nontender, Nondistended and Normal Bowel Sounds
Genito-urinary: No Costovertebral Tender
Musculoskeletal: No Clubbing, No Cyanosis and No Edema
Skin: Warm
Neuro: Awake, Alert, Oriented, AO x 3 and No Motor Deficits
Psych: Calm
[2024-12-30 12:31] LABS: Glucose - Point of Care 162 mg/dl (70-99)
[2024-12-30] MEDS: CIPRO 500 MG PO ×2 (14:13→20:18)
[2024-12-30] MEDS: NOVOLOG FLEXPEN-LOW RESISTANCE 1 UNITS SC (14:16)
[2024-12-30 15:00] VITALS: BP 110/62
--- NOTE | 2024-12-30 16:00 | PTOTSP ---
The patient ambulated in the hallway independently, offering no concerns regarding mobility upon return home. No PT needs identified at this time, will sign off.
[2024-12-30 16:37] LABS: Glucose - Point of Care 131 mg/dl (70-99)
--- NOTE | 2024-12-30 17:37 | PTCARENOTE ---
Report taken, assumed care of patient at 1500. Patient in bed with son at bedside, son assists with translation as patient is primarily Kazakh speaking. Patient offers no complaints at this time. PT worked with patient and signed off - no needs.
Blood glucose 131, patient eating dinner and tolerating diet. Medications given as per order without difficulty - see SEA. VSS, call ding within reach, care ongoing.
[2024-12-30 20:04] VITALS: BP 155/79
[2024-12-30 21:13] LABS: Glucose - Point of Care 212 mg/dl (70-99)
[2024-12-30 23:09] VITALS: BP 148/73
[2024-12-31] MEDS: ROBITUSSIN 100 MG PO (02:17)
[2024-12-31 02:53] VITALS: BP 138/86
[2024-12-31 07:00] VITALS: BP 135/83
[2024-12-31 07:01] LABS: Glucose - Point of Care 125 mg/dl (70-99)
[2024-12-31] MEDS: NOVOLOG FLEXPEN-LOW RESISTANCE SC ×2 (07:02→12:24)
[2024-12-31] MEDS: PROPYLTHIOURACIL 50 MG PO (07:55)
[2024-12-31] MEDS: LOPRESSOR 50 MG PO (07:55)
[2024-12-31] MEDS: ELIQUIS 5 MG PO (07:55)
[2024-12-31] MEDS: TAPAZOLE 10 MG PO (07:55)
[2024-12-31] MEDS: CIPRO 500 MG PO (07:55)
[2024-12-31 09:06] LABS: Blood Urea Nitrogen 23 mg/dl (9-20); Calcium 8.8 mg/dl (8.4-10.2); Carbon Dioxide 21 mmol/L (22-30); Chloride 109 mmol/L (98-107); Estimated Creatinine Clearance 65 ml/min; Glucose 112 mg/dl (70-99); Potassium 3.5 mmol/L (3.5-5.1); Sodium 139 mmol/L (135-145); eGFR > 60.00
[2024-12-31 09:12] LABS: Hematocrit 37.5 % (39.0-52.0); Hemoglobin 13.4 g/dL (13.0-18.0); Mean Corp Hgb Conc. 35.7 g/dL (33.0-37.0); Mean Corpuscular Volume 83.9 fL (80.0-94.0); Platelet Count 180 10^3/uL (130-400); Red Cell Dist. Width 12.3 % (11.5-14.5)
--- NOTE | 2024-12-31 10:46 | W.PN.HOSP.TC ---
Today's Communication/Plan
-
Dc home
Assessment / Plan
Assessment / Plan
Impression:
This is a 69-year-old with past medical history significant for atrial fibrillation, sxd-lhnicrt-klvtnmvwk diabetes, hyperthyroid presents to the emergency department for complaints of chest discomfort, back pain/flank pain as well as a fever.
Family reports that diarrhea for 5 days. He is currently not taking any medications for any of his conditions due to concern that intermittent cough. He has not taken medications for over a year.
Patient treated for sepsis with cefepime, developed A-fib with RVR and seen by cardiology who ordered echocardiogram which showed:
1. Normal left ventricular size, wall thickness and systolic function. Ejection fraction is 55%.
2. Moderate mitral regurgitation.
3. Right ventricular size and systolic function are within normal limits.
4. Mild/moderate tricuspid regurgitation.
5. No prior study available for comparison.
Continued on metoprolol and Eliquis.
Positive urine and blood culture positive for Gram negative bacilli (Morganella morganii)
Leukocytosis and lactic acidosis improved
Possible discharge home on Cipro.
Leukocytosis continue to improve, will be discharged home on Cipro to complete 14 days of antibiotics.
Assessment/plan:
Severe sepsis with acute organ dysfunction
Patient meets sepsis criteria on admission
Heart rate 131
WBCs 25.9
Respiratory rate 28
Temperature 103.1
Source of infection is urine
IV fluid
IV antibiotic in form of cefepime
both urine and blood cultures positive for gram-negative bacilli, pending final sensitivity.
CT abdomen and pelvis:
At least moderately enlarged prostate gland. At least relative diffuse wall thickening of the urinary bladder due to underdistention or bladder outlet obstruction. Other etiology such as cystitis cannot be excluded.
Evaluation of the abdomen and pelvis overall markedly limited without oral or intravenous contrast demonstrating no intestinal obstruction, findings to suggest obstructive uropathy bilaterally or free air.
Small simple left renal cyst.
Acute organ dysfunction in the form of lactic acidosis
12/30
Positive urine and blood culture positive for Gram negative bacilli (Morganella morganii)
Possible discharge home on Cipro
12/31
Leukocytosis continue to improve, will be discharged home on Cipro to complete 14 days of antibiotics.
Lactic acidosis.
Secondary to sepsis.
Status post IV fluid.
Improved and resolved
Uncontrolled atrial fibrillation with AVR:
-patient previously on metoprolol and Eliquis currently noncompliant. Likely untreated uncontrolled atrial fibrillation in the setting of sepsis and fever
-Telemetry
-Fever control
-IV fluids as above
-Risk that is metoprolol at 50 twice daily with hold parameters
-restarted Eliquis.
- Cardiology consulted
Echo :
1. Normal left ventricular size, wall thickness and systolic function. Ejection fraction is 55%.
2. Moderate mitral regurgitation.
3. Right ventricular size and systolic function are within normal limits.
4. Mild/moderate tricuspid regurgitation.
5. No prior study available for comparison.
12/31
Patient will be given prescription to his home meds including 2 refills
History of hyperthyroidism
-old medication shows that he was on PTU and methimazole but not currently on any thyroid supplementation. No thyrotoxicosis/or thyroid myxedema
-TSH <0.02, Free T4 4.52
- Resumed methimazole/Propylthiouracil.
History of diabetes mellitus
Continue home medication
Insulin sliding scale
Diabetic diet
Hemoglobin A1c 8.4
12/31
Patient will be given instructions for diabetic diet
CODE STATUS: Full code
DVT prophylaxis: Eliquis
Diet: cardiac/ DM diet
Family communication: Discussed with son as bedside.
Disposition: Dc home
Total time spent on today's encounter was 65 minutes which included time spent in counseling the patient/family regarding diagnosis and treatment plan as listed above, goals of care, and symptom management. Case was discussed with nursing staff,
specialists, and care coordinators/case management. All labs and imaging personally reviewed by me. Remainder the time spent in detailed review of previous records, lab data, imaging, and other medical provider documentation.
Anticipated Discharge: Today
Subjective/Interval History
-
Date of Service: December 31, 2024
Patient seen and examined at bedside, denies any chest pain or shortness of breath, no abdominal pain, no nausea, no vomiting, no diarrhea or constipation.
Objective Data
-
Labs:
Laboratory Results
12/31/24
07:15
WBC 8.7
Hgb 13.4
Hct 37.5 L
Plt Count 180 D
Sodium 139
Potassium 3.5
Chloride 109 H
Carbon Dioxide 21 L
BUN 23 H
Creatinine 1.0
Glucose 112 H
Calcium 8.8
Vital Signs:
Vital Signs
Temp Pulse Resp BP Pulse Ox
97.8 F 81 16 135/83 97
12/31/24 07:00 12/31/24 07:00 12/31/24 07:00 12/31/24 07:00 12/31/24 07:00
I&O
12/30/24 12/31/24 01/01/25
06:59 06:59 06:59
Intake Total 1620 / 1620 180 / 180
Balance 1620 / 1620 180 / 180
Physical Exam
-
General: Well Developed, Well Nourished, No Apparent Distress and Comfortable
HEENT: Normocephalic, Atraumatic, Moist Mucous Membranes, No Ptosis, PERRLA and Nose Appears Normal
Respiratory: Rales, Rhonchi and Non Labored Respirations
Cardiac: S1/S2 and Irregular Rhythm
Breast: Deferred by me
GI: Soft, Nontender, Nondistended and Normal Bowel Sounds
Genito-urinary: No Costovertebral Tender
Musculoskeletal: No Clubbing, No Cyanosis and No Edema
Skin: Warm
Neuro: Awake, Alert, Oriented, AO x 3 and No Motor Deficits
Psych: Calm
Data Reviewed
-
Diagnostic Radiology: Image personally visualized and interpreted and Report Reviewed by me
CT Scan: Image personally visualized and interpreted and Report Reviewed by me
Ultrasound: Image personally visualized and interpreted and Report Reviewed by me
MRI: Image personally visualized and interpreted and Report Reviewed by me
Medical Tests (Nuc Med, Echo etc): Image personally visualized and interpreted and Report Reviewed by me
Labs: Labs Reviewed by me
Old Records: Reviewed
[2024-12-31 11:00] VITALS: BP 111/59
--- NOTE | 2024-12-31 11:03 | W.DCSUMMARY ---
Discharge Summary
Discharge Data
Date of Admission: 12/27/24
Date of Discharge: 12/31/24
Total time spent discharging patient (in min): 40
-
Pending Results: No
Hospital Course
Hospital course
This is a 69-year-old with past medical history significant for atrial fibrillation, oyn-ygtlsge-syqtfoqec diabetes, hyperthyroid presents to the emergency department for complaints of chest discomfort, back pain/flank pain as well as a fever.
Family reports that diarrhea for 5 days. He is currently not taking any medications for any of his conditions due to concern that intermittent cough. He has not taken medications for over a year.
Patient treated for sepsis with cefepime, developed A-fib with RVR and seen by cardiology who ordered echocardiogram which showed:
1. Normal left ventricular size, wall thickness and systolic function. Ejection fraction is 55%.
2. Moderate mitral regurgitation.
3. Right ventricular size and systolic function are within normal limits.
4. Mild/moderate tricuspid regurgitation.
5. No prior study available for comparison.
Continued on metoprolol and Eliquis.
Positive urine and blood culture positive for Gram negative bacilli (Morganella morganii)
Leukocytosis and lactic acidosis improved
Possible discharge home on Cipro.
Leukocytosis continue to improve, will be discharged home on Cipro to complete 14 days of antibiotics.
During hospitalization patient was treated from the following
Severe sepsis with acute organ dysfunction
Patient meets sepsis criteria on admission
Heart rate 131
WBCs 25.9
Respiratory rate 28
Temperature 103.1
Source of infection is urine
IV fluid
IV antibiotic in form of cefepime
both urine and blood cultures positive for gram-negative bacilli, pending final sensitivity.
CT abdomen and pelvis:
At least moderately enlarged prostate gland. At least relative diffuse wall thickening of the urinary bladder due to underdistention or bladder outlet obstruction. Other etiology such as cystitis cannot be excluded.
Evaluation of the abdomen and pelvis overall markedly limited without oral or intravenous contrast demonstrating no intestinal obstruction, findings to suggest obstructive uropathy bilaterally or free air.
Small simple left renal cyst.
Acute organ dysfunction in the form of lactic acidosis
12/30
Positive urine and blood culture positive for Gram negative bacilli (Morganella morganii)
Possible discharge home on Cipro
12/31
Leukocytosis continue to improve, will be discharged home on Cipro to complete 14 days of antibiotics.
Lactic acidosis.
Secondary to sepsis.
Status post IV fluid.
Improved and resolved
Uncontrolled atrial fibrillation with AVR:
-patient previously on metoprolol and Eliquis currently noncompliant. Likely untreated uncontrolled atrial fibrillation in the setting of sepsis and fever
-Telemetry
-Fever control
-IV fluids as above
-Risk that is metoprolol at 50 twice daily with hold parameters
-restarted Eliquis.
- Cardiology consulted
Echo :
1. Normal left ventricular size, wall thickness and systolic function. Ejection fraction is 55%.
2. Moderate mitral regurgitation.
3. Right ventricular size and systolic function are within normal limits.
4. Mild/moderate tricuspid regurgitation.
5. No prior study available for comparison.
12/31
Patient will be given prescription to his home meds including 2 refills
History of hyperthyroidism
-old medication shows that he was on PTU and methimazole but not currently on any thyroid supplementation. No thyrotoxicosis/or thyroid myxedema
-TSH <0.02, Free T4 4.52
- Resumed methimazole/Propylthiouracil.
History of diabetes mellitus
Continue home medication
Insulin sliding scale
Diabetic diet
Hemoglobin A1c 8.4
12/31
Patient will be given instructions for diabetic diet
CODE STATUS: Full code
DVT prophylaxis: Eliquis
Diet: cardiac/ DM diet
Family communication: Discussed with son as bedside.
Disposition: Dc home
Total time spent on today's encounter was 40 minutes which included time spent in counseling the patient/family regarding diagnosis and treatment plan as listed above, goals of care, and symptom management. Case was discussed with nursing staff,
specialists, and care coordinators/case management. All labs and imaging personally reviewed by me. Remainder the time spent in detailed review of previous records, lab data, imaging, and other medical provider documentation.
Anticipated Discharge: Today
Discharge Plan
-
Patient Disposition: Home (Routine Discharge)
Discharge Diagnosis/Procedures: Severe sepsis with acute organ dysfunction.
UTI
Uncontrolled atrial fibrillation with AVR.
hyperthyroidism.
diabetes mellitus
Diet: Low Cholesterol and Diabetic, Carb Controlled
Activity: With assistance and As tolerated
Referrals:
PCP [Other] - in less than 1 week
Malcolm Solomon MD, Resident [[facility] Resident Year3, General] - in one to two weeks
Referral Note: if you do not have PCP
Sarina Wallace MD [Consulting Staff, Endocrinology] - in three to four weeks
Referral Note: for management of diabetes and hyperthyroidism.
Sami Esparza MD [Active, Cardiology] - in one to two weeks
Prescriptions:
New
ciprofloxacin HCl 500 mg Tablet
500 mg PO BID 12 Days Qty: 24 0RF
Continued
metformin 500 mg Tablet
500 mg PO BID Qty: 60 2RF
propylthiouracil 50 mg Tablet
50 mg PO BID Qty: 60 2RF
metoprolol tartrate 100 mg Tablet
100 mg PO BID Qty: 60 2RF
methimazole 10 mg Tablet
10 mg PO TID Qty: 90 2RF
Eliquis 5 mg Tablet
5 mg PO BID Qty: 60 2RF
lisinopril 20 mg Tablet
20 mg PO DAILY Qty: 30 2RF
Discontinued
amlodipine [Norvasc] 5 mg Tablet
5 mg PO DAILY
Discharge Orders:
Discharge Patient (As Directed); Ordered 12/31/24
Ordered By: Rajesh Harris
Discharge Date and Time
Print Language: CHINESE
[2024-12-31 12:14] LABS: Glucose - Point of Care 110 mg/dl (70-99)
--- NOTE | 2024-12-31 13:49 | CM ---
Patient has been medically cleared for discharge to home with no additional services. Patient arranged for transport home.
--- NOTE | 2025-01-01 12:32 | CM ---
Late Entry
showroom manager received a call from [employer] that Eliquis was $500 embedded case manager offered an Eliquis coupon and met with patient and son at ED entrance to provide coupon to patient.
== END 2024-12-31 13:45 | disposition home or self-care (01) | DRG 872 ==
LOC: 4 WEST ACU 20:20
PROVIDERS: Registered Nurse; ADMITTING PHYSICIAN Internal Medicine; ATTENDING PHYSICIAN General Practice; CONSULT PHYSICIAN Student in an Organized Health Care Education/Training Program; EMERGENCY PHYSICIAN Emergency Medicine
DX: A41.9 Sepsis, unspecified organism (principal); N39.0 Urinary tract infection, site not specified; I48.19 Other persistent atrial fibrillation; E87.1 Hypo-osmolality and hyponatremia; E87.20 Acidosis, unspecified; R65.20 Severe sepsis without septic shock; E05.90 Thyrotoxicosis, unspecified without thyrotoxic crisis or storm; E11.9 Type 2 diabetes mellitus without complications; Z79.84 Long term (current) use of oral hypoglycemic drugs; Z79.01 Long term (current) use of anticoagulants; I10 Essential (primary) hypertension; I08.1 Rheumatic disorders of both mitral and tricuspid valves; N32.0 Bladder-neck obstruction; N40.1 Benign prostatic hyperplasia with lower urinary tract symptoms; N28.1 Cyst of kidney, acquired; Z79.899 Other long term (current) drug therapy; Z91.199 Patient's noncompliance with other medical treatment and regimen due to unspecified reason; Z11.52 Encounter for screening for COVID-19
CPT/HCPCS: 71045; 74176; 80048; 80053; 81003; 81015; 82962; 83036; 83605; 84439; 84443; 84484; 85025; 85027; 85610; 86803; 87040; 87045; 87046; 87077; 87086; 87154; 87186; 87205; 87324; 87427; 87449; 87502; 87811; 93005; 93306; 96361; 96374; 97161; 99285